=== PATIENT | female | born 1960 | race Caucasian/White ===

== ENCOUNTER 2017-07-27 13:00 | Emergency (ER) | payer OTHER ==
[~2017-07-27] VITALS: Ht 152.4 cm; Wt 48.0 kg
[~2017-07-27 13:00] MED LIST: METHOTREXATE; NAPROSYN; PREDNISONE
[2017-07-27 15:45] VITALS: BP 123/71
== END 2017-07-27 15:46 | disposition home or self-care (01) ==
LOC: ER 15:11
DX: B02.9 Zoster without complications (principal); Z88.6 Allergy status to analgesic agent
CPT/HCPCS: 99283